=== PATIENT | male | born 1955 | race Caucasian/White ===

== ENCOUNTER 2019-10-11 10:58 | Day surgery (SDC) | payer OTHER ==
[~2019-10-11 10:58] MED LIST: Betamethasone Acetate/Betamethasone Sod Phosphate 30 MG/5 ML MDV EPIDUR ONE; Iopamidol 200-M 10 ML vial ITHECAL ONE; Lidocaine 2% 5 ML SDV INJECT ONE; Ropivacaine 0.5% 5 MG/ML 30 ML SDV INJECT ONE
--- NOTE | 2019-10-11 18:50 | OR ---
SURGEON: Claire New D.O. DATE OF PROCEDURE: 10/11/2019 PRIMARY SURGEON: Claire New D.O. ASSISTANTS: OR staff present: 1. Brendan Ny RN. 2. RT Chica. 3. Brendan Barksdale RN. PREOPERATIVE DIAGNOSES: 1. Lumbar degenerative disk disease, L2-3 through L5-S1. 2. Lumbar spinal stenosis. 3. Lumbar spondylosis. 4. Lumbar radiculopathy. POSTOPERATIVE DIAGNOSES: 1. Lumbar degenerative disk disease, L2-3 through L5-S1. 2. Lumbar spinal stenosis. 3. Lumbar spondylosis. 4. Lumbar radiculopathy. PROCEDURES PERFORMED: 1. Caudal epidural steroid injection. 2. Fluoroscopic guidance for needle placement. 3. Local with oral Valium for sedation. SCREENING QUESTIONS: The patient answered "no" to all of the following questions: 1. Are you allergic to latex? 2. Do you have a bleeding disorder? 3. Do you have any current local or systemic infections? 4. Are you taking any anti-inflammatories or blood thinners? 5. Do you have any joint replacements, heart valve replacements, or a pacemaker? DESCRIPTION OF PROCEDURE: The patient had the procedure thoroughly explained including all possible risks, benefits and alternatives. Consent was signed in my clinic indicating understanding and willingness to proceed. The patient presented to [facility] [place] and was escorted to the dressing room to disrobe and change into a hospital gown. Preoperative vital signs were taken and stable. The patient reported that Valium was taken prior to the procedure. The patient was brought back to the procedure room and placed in the prone position on the procedure room table. A pillow was placed under the hips in order to flatten the lumbar lordosis. The back was prepped with ChloraPrep and sterilely draped. All personnel in the operating room were dressed in appropriate attire including surgical scrubs, head and shoe covers. This was to ensure sterility while in the treatment room. During the time fluoroscopy was in use, all personnel in the operating room wore lead pacheco with thyroid collars. Sterile technique was used throughout the procedure. The patient was awake and conversant throughout the procedure. There was no evidence of infection at the site of needle insertion. Skeletal landmarks were identified under fluoroscopy for the lumbar epidural. Skin was anesthetized with 2% lidocaine with a sterile 27-gauge 1.5 inch needle. Then a 20-gauge Tuohy epidural needle was placed in the epidural space with loss of resistance technique under fluoroscopic guidance. No heme, cerebrospinal fluid, or paresthesias were noted. Isovue-200 contrast dye was injected in 0.2 cubic centimeter increments and seen to outline the epidural space in both AP and lateral views. There was no intravascular flow pattern observed under live fluoroscopy. Then 12 milligrams of Celestone was slowly injected after negative aspiration. The patient tolerated the procedure well. Vital signs were stable during and after the procedure. The staff escorted the patient to the recovery area and the patient was released in stable condition after a brief stay in the recovery room monitored by the nurse. The patient was given both oral and written discharge and follow up instructions with recommendation to follow up given for 2-3 weeks. The patient voiced understanding including understanding of those signs and symptoms that would require emergency care. The patient knows how to contact the office if there are any additional problems or questions in the meantime. PREOPERATIVE PAIN: 5 to 9 out of 10. POSTOPERATIVE PAIN: 1/10. FOLLOWUP: In the Pain Clinic in 1 month. KENNETH / PATRICIA /[id number]
== END 2019-10-11 13:00 | disposition home or self-care (01) ==
LOC: MW.SDS 10:58
PROVIDERS: ATTEND Anesthesiology
DX: M51.16 Intervertebral disc disorders with radiculopathy, lumbar region (principal); M51.37 Other intervertebral disc degeneration, lumbosacral region; M47.26 Other spondylosis with radiculopathy, lumbar region; M48.061 Spinal stenosis, lumbar region without neurogenic claudication
CPT/HCPCS: J0702

== ENCOUNTER 2019-12-11 10:58 | Day surgery (SDC) | payer OTHER ==
[2019-12-11] MEDS ORDERED: Ropivacaine 0.5% 5 MG/ML 30 ML SDV INJECT ONE (12:30)
[2019-12-11] MEDS ORDERED: Lidocaine 2% 5 ML SDV INJECT ONE (12:30)
[2019-12-11] MEDS ORDERED: Iopamidol 200-M 10 ML vial ITHECAL ONE (12:30)
[2019-12-11] MEDS ORDERED: Betamethasone Acetate/Betamethasone Sod Phosphate 30 MG/5 ML MDV EPIDUR ONE (12:30)
--- NOTE | 2019-12-11 20:20 | OR ---
SURGEON: Claire New D.O. DATE OF PROCEDURE: 12/11/2019 PRIMARY SURGEON: Claire New D.O. ASSISTANTS: OR staff present: 1. Hamzah Hurt. 2. Darrell Thrasher. 3. Caprice Posada. 4. Rosamaria Blas. WOUND CLASS: I. PREOPERATIVE DIAGNOSES: 1. Lumbar L2-3 degenerative disk disease. 2. L5-S1 degenerative disk disease. 3. Left L2 radiculopathy. 4. Left S1 radiculopathy. POSTOPERATIVE DIAGNOSES: 1. Lumbar L2-3 degenerative disk disease. 2. L5-S1 degenerative disk disease. 3. Left L2 radiculopathy. 4. Left S1 radiculopathy. PROCEDURE PERFORMED: 1. Left L2 transforaminal epidural steroid injection. 2. Left S1 transforaminal epidural steroid injection. 3. Fluoroscopic guidance for needle placement. 4. Local with oral Valium for sedation. SCREENING QUESTIONS: The patient answered "no" to all of the following questions: 1. Are you allergic to iodine, Betadine or latex? 2. Do you have a bleeding disorder? 3. Do you have any joint replacements, heart valve replacements, or a pacemaker? 4. Are you allergic to anti-inflammatories or blood thinners? 5. Do you have any current local or systemic infections? DESCRIPTION OF PROCEDURE: The patient had the procedure thoroughly explained including risks, benefits and alternatives. Consent was signed in my clinic indicating understanding and willingness to proceed. The patient presented to [facility] [place] where the patient was escorted to the dressing room to disrobe and change into a hospital gown. Preoperative vital signs were taken and stable. The patient reported that Valium was taken prior to the procedure. The patient was brought to the procedure room and placed in the prone position on the table. A pillow was placed under the abdomen in order to flatten the lumbar lordosis. The back was prepped with ChloraPrep and sterilely draped. All personnel in the operating room were dressed in appropriate attire including surgical scrubs, head and shoe covers. This was to ensure sterility while in the treatment room. During the time fluoroscopy was in use, all personnel in the operating room wore lead pacheco with thyroid collars. Sterile technique was used during the procedure. The fluoroscope was placed for the L2 transforaminal epidural steroid injection. There was no sign of infection at the skin site for needle insertion. The skin was anesthetized with 2% lidocaine with a 27 gauge 1-1/2 inch needle. Then a 22 gauge 3-1/2 inch spinal needle, advanced to the L2 foramen. Under direct fluoroscopic guidance needle position was verified in three views; AP, oblique and lateral, with 0.2 cubic centimeters increments of Isovue- 200 dye. No intravascular flow pattern was observed under live fluoroscopy. Then 6 milligrams of Celestone and local mixture was slowly injected after negative aspiration of heme, cerebrospinal fluid and no paresthesias were noted. The needle was cleared prior to removal from the skin. The procedure was then repeated as above with no adverse reactions. The patient was brought to the recovery room awake and in good condition by my staff. The patient was monitored and discharge instructions were given after a brief stay in the recovery area. Both oral and written discharge and follow up instructions were given. The patient will follow up in the clinic in 3 weeks post procedure to evaluate the efficacy. The patient verbalized understanding including understanding of those signs and symptoms that would require emergency care and knows how to contact the office if there are any problems or questions in the meantime. PREOPERATIVE PAIN: 3 to 7 out of 10. POSTOPERATIVE PAIN: 1/10. FOLLOWUP: Follow up in the Pain Clinic in 3 weeks. KENNETH / PATRICIA /[id number] MANE
== END 2019-12-11 13:31 ==
LOC: MW.SDS 10:58
PROVIDERS: ATTEND Anesthesiology
DX: G89.29 Other chronic pain (principal); M51.16 Intervertebral disc disorders with radiculopathy, lumbar region; M51.17 Intervertebral disc disorders with radiculopathy, lumbosacral region
CPT/HCPCS: 64483; 64484; J0702; 62323

== ENCOUNTER 2020-04-29 10:59 | Day surgery (SDC) | payer OTHER ==
[2020-04-29] MEDS ORDERED: Ropivacaine 0.5% 5 MG/ML 30 ML SDV INJECT ONE (12:30)
[2020-04-29] MEDS ORDERED: Betamethasone Acetate/Betamethasone Sod Phosphate 30 MG/5 ML MDV EPIDUR ONE (12:30)
[2020-04-29] MEDS ORDERED: Iopamidol 200-M 10 ML vial ITHECAL ONE (12:30)
[2020-04-29] MEDS ORDERED: Lidocaine 2% 5 ML SDV INJECT ONE (12:30)
--- NOTE | 2020-04-29 19:21 | OR ---
SURGEON: Claire New D.O. DATE OF PROCEDURE: 04/29/2020 PREOPERATIVE DIAGNOSES: 1. Lumbar degenerative disk disease. 2. Lumbar spondylosis. 3. Lumbar left S1 radiculopathy. POSTOPERATIVE DIAGNOSES: 1. Lumbar degenerative disk disease. 2. Lumbar spondylosis. 3. Lumbar left S1 radiculopathy. PROCEDURES PERFORMED: 1. Left S1 transforaminal epidural steroid injection. 2. Fluoroscopic guidance for needle placement. 3. Local with oral Valium for sedation. OR STAFF PRESENT: 1. Brendan Barksdale RN. 2. Darrell Hylton RN. 3. Adrián Lau RT. WOUND CLASS: I. SCREENING QUESTIONS: The patient answered "no" to all of the following questions: 1. Are you allergic to iodine, Betadine or latex? 2. Do you have a bleeding disorder? 3. Do you have any joint replacements, heart valve replacements, or a pacemaker? 4. Are you allergic to anti-inflammatories or blood thinners? 5. Do you have any current local or systemic infections? DESCRIPTION OF PROCEDURE: The patient had the procedure thoroughly explained including risks, benefits and alternatives. Consent was signed in my clinic indicating understanding and willingness to proceed. The patient presented to [facility] [place] where the patient was escorted to the dressing room to disrobe and change into a hospital gown. Preoperative vital signs were taken and stable. The patient reported that Valium was taken prior to the procedure. The patient was brought to the procedure room and placed in the prone position on the table. A pillow was placed under the abdomen in order to flatten the lumbar lordosis. The back was prepped with ChloraPrep and sterilely draped. All personnel in the operating room were dressed in appropriate attire including surgical scrubs, head and shoe covers. This was to ensure sterility while in the treatment room. During the time fluoroscopy was in use, all personnel in the operating room wore lead pacheco with thyroid collars. Sterile technique was used during the procedure. The fluoroscope was placed for the left S1 transforaminal epidural steroid injection. There was no sign of infection at the skin site for needle insertion. The skin was anesthetized with 2% lidocaine with a 27 gauge 1-1/2 inch needle. Then a 22 gauge 3-1/2 inch spinal needle, advanced to the S1. Under direct fluoroscopic guidance needle position was verified in three views; AP, oblique and lateral, with 0.2 cubic centimeters increments of Isovue-200 dye. No intravascular flow pattern was observed under live fluoroscopy. Then 12 milligrams of Celestone and local was slowly injected after negative aspiration of heme, cerebrospinal fluid and no paresthesias were noted. The needle was cleared prior to removal from the skin. No adverse reactions were noted. The patient was brought to the recovery room awake and in good condition by my staff. The patient was monitored and discharge instructions were given after a brief stay in the recovery area. Both oral and written discharge and follow up instructions were given. The patient will follow up in the clinic in 3-4 weeks post procedure to evaluate the efficacy. The patient verbalized understanding including understanding of those signs and symptoms that would require emergency care and knows how to contact the office if there are any problems or questions in the meantime. PREOPERATIVE PAIN: 6/10. POSTOPERATIVE PAIN: 2/10. FOLLOWUP: In the Pain Clinic in 3 weeks. KENNETH / PATRICIA /[id number] MTDD
== END 2020-04-29 13:28 | disposition home or self-care (01) ==
LOC: MW.SDS 10:59
PROVIDERS: ATTEND Anesthesiology
DX: M51.16 Intervertebral disc disorders with radiculopathy, lumbar region (principal); M48.061 Spinal stenosis, lumbar region without neurogenic claudication; M79.18 Myalgia, other site; M99.83 Other biomechanical lesions of lumbar region; M47.26 Other spondylosis with radiculopathy, lumbar region; Z87.891 Personal history of nicotine dependence
CPT/HCPCS: 62323; 64483

== ENCOUNTER 2020-12-09 10:59 | Day surgery (SDC) | payer OTHER ==
[2020-12-09] MEDS ORDERED: Ropivacaine 0.5% 5 MG/ML 30 ML SDV INJECT ONE (12:00)
[2020-12-09] MEDS ORDERED: Betamethasone Acetate/Betamethasone Sod Phosphate 30 MG/5 ML MDV EPIDUR ONE (12:00)
[2020-12-09] MEDS ORDERED: Iopamidol 200-M 10 ML vial ITHECAL ONE (12:00)
[2020-12-09] MEDS ORDERED: Lidocaine 2% 5 ML SDV INJECT ONE (12:00)
--- NOTE | 2020-12-09 15:37 | OR ---
SURGEON: Claire New D.O. DATE OF PROCEDURE: 12/09/2020 PRIMARY SURGEON: Claire New DO ASSISTANTS: OR staff present: 1. Darrell Hylton RN. 2. Brendan Recinos RN. 3. Brendan Falk RT. WOUND CLASS: I. PREOPERATIVE DIAGNOSES: 1. Lumbar degenerative disk disease, L4-5 and L5-S1. 2. Left L5-S1 radiculopathy. 3. Lumbar spondylosis. 4. Chronic low back pain. POSTOPERATIVE DIAGNOSES: 1. Lumbar degenerative disk disease, L4-5 and L5-S1. 2. Left L5-S1 radiculopathy. 3. Lumbar spondylosis. 4. Chronic low back pain. PROCEDURES PERFORMED: 1. Left S1 transforaminal epidural steroid injection. 2. Fluoroscopic guidance for needle placement. 3. Local with oral Valium for sedation. SCREENING QUESTIONS: The patient answered "no" to all of the following questions: 1. Are you allergic to iodine, Betadine or latex? 2. Do you have a bleeding disorder? 3. Do you have any joint replacements, heart valve replacements, or a pacemaker? 4. Are you allergic to anti-inflammatories or blood thinners? 5. Do you have any current local or systemic infections? DESCRIPTION OF PROCEDURE: The patient had the procedure thoroughly explained including risks, benefits and alternatives. Consent was signed in my clinic indicating understanding and willingness to proceed. The patient presented to [facility] [place] where the patient was escorted to the dressing room to disrobe and change into a hospital gown. Preoperative vital signs were taken and stable. The patient reported that Valium was taken prior to the procedure. The patient was brought to the procedure room and placed in the prone position on the table. A pillow was placed under the abdomen in order to flatten the lumbar lordosis. The back was prepped with ChloraPrep and sterilely draped. All personnel in the operating room were dressed in appropriate attire including surgical scrubs, head and shoe covers. This was to ensure sterility while in the treatment room. During the time fluoroscopy was in use, all personnel in the operating room wore lead pacheco with thyroid collars. Sterile technique was used during the procedure. The fluoroscope was placed for the left S1 transforaminal epidural steroid injection. There was no sign of infection at the skin site for needle insertion. The skin was anesthetized with 2% lidocaine with a 27 gauge 1-1/2 inch needle. Then, a 22 gauge 3-1/2 inch spinal needle, advanced to the left S1 foramen. Under direct fluoroscopic guidance needle position was verified in three views; AP, oblique and lateral, and with 0.2 cubic centimeters increments of Isovue- 200 dye. No intravascular flow pattern was observed under live fluoroscopy. Then 12 milligrams of Celestone and local was slowly injected after negative aspiration of heme, cerebrospinal fluid and no paresthesias were noted. The needle was cleared prior to removal from the skin. No adverse reactions were noted. The patient was brought to the recovery room awake and in good condition by my staff. The patient was monitored and discharge instructions were given after a brief stay in the recovery area. Both oral and written discharge and follow up instructions were given. The patient will follow up in the clinic in 3-4 weeks post procedure to evaluate the efficacy. The patient verbalized understanding including understanding of those signs and symptoms that would require emergency care and knows how to contact the office if there are any problems or questions in the meantime. PREOPERATIVE PAIN: 7/10. POSTOPERATIVE PAIN: /10. FOLLOWUP: In the Pain Clinic in 3 weeks. KENNETH / PATRICIA /[id number] MANE
== END 2020-12-09 13:23 ==
LOC: MW.SDS 10:59
PROVIDERS: ATTEND Anesthesiology
DX: G89.29 Other chronic pain (principal); M51.16 Intervertebral disc disorders with radiculopathy, lumbar region; M51.17 Intervertebral disc disorders with radiculopathy, lumbosacral region; M47.26 Other spondylosis with radiculopathy, lumbar region; M48.061 Spinal stenosis, lumbar region without neurogenic claudication; M79.18 Myalgia, other site; Z79.899 Other long term (current) drug therapy; Z87.891 Personal history of nicotine dependence
CPT/HCPCS: 64483; J0702; J2001; J2795; Q9966

== ENCOUNTER 2021-03-13 06:28 | Day surgery (SDC) | payer SELFPAY ==
--- NOTE | 2021-03-11 15:11 | PN ---
SUBJECTIVE: The patient was supposed to get a hernia repair surgery done today. However, an emergent case from the ER came in from Dr. Dacosta. Dr. Dacosta did ask that I bump the case because of the emergent status of the case, and she also wants my assistance on the case. I did go out and explained to the patient that we would have to delay his case by several hours. I went over there is no way to know exactly how long the emergency cases can take. I explained the patient is more welcome to wait or go home and wait and we will call him when ready for his procedure. The patient was unhappy with this because he did not want to be n.p.o. for all that time. We then discussed potentially that I can get him in on Tuesday for his case. The patient was also not very thrilled with that, but liked that better than not eating for several hours, so we will get him rescheduled Tuesday. I did go over with the patient again that because we do have an ER, we potentially have to bump cases because emergent cases do come up. The patient at the end does seem to understand. GOMEZ GOMEZ /[id number]
[~2021-03-13 06:28] MED LIST changes: +Acetaminophen 1,000 MG in Premix Bag 1 BAG IV ONE; -Betamethasone Acetate/Betamethasone Sod Phosphate 30 MG/5 ML MDV EPIDUR ONE; +Dexamethasone 4 MG/ML 5 ML MDV ONE; -Iopamidol 200-M 10 ML vial ITHECAL ONE; +Lactated Ringers 1,000 ML IV SCH; -Lidocaine 2% 5 ML SDV INJECT ONE; +Midazolam 1 MG/ML 2 ML SDV ONE; +Ondansetron 4 MG/2 ML SDV ONE; +Pregabalin 75 MG Cap PO SCH; +Propofol 200 MG/20 ML SDV ONE; +Rocuronium Bromide 50 MG/5 ML Syringe ONE; -Ropivacaine 0.5% 5 MG/ML 30 ML SDV INJECT ONE; +ceFAZolin 2 GM in Premix Bag 1 BAG IV ONE; +fentaNYL 250 MCG/5 ML SDV ONE
[2021-03-13] MEDS ORDERED: Pregabalin 75 MG Cap ONE (06:46)
[2021-03-13] MEDS ORDERED: Sugammadex Sodium 200 MG/2 ML VIAL ONE (06:56)
[2021-03-13] MEDS ORDERED: Lidocaine 2% 5 ML SDV ONE (07:01)
[2021-03-13] MEDS ORDERED: Rocuronium Bromide 50 MG/5 ML Syringe ONE (07:01)
[2021-03-13] MEDS ORDERED: Ketorolac 30 MG/ML SDV ONE (07:01)
[2021-03-13] MEDS ORDERED: Ondansetron 4 MG/2 ML SDV ONE (07:01)
[2021-03-13] MEDS ORDERED: Propofol 200 MG/20 ML SDV ONE (07:01)
[2021-03-13] MEDS ORDERED: Glycopyrrolate 0.2 MG/ML SDV ONE (07:01)
[2021-03-13] MEDS ORDERED: fentaNYL 250 MCG/5 ML SDV ONE (07:02)
[2021-03-13] MEDS ORDERED: Midazolam 1 MG/ML 2 ML SDV ONE (07:02)
[2021-03-13] MEDS ORDERED: Bupivacaine 0.5% 30 ML SDV ONE (07:12)
[2021-03-13] MEDS ORDERED: Octyl 2-Cyanoacrylate 1 Tube ONE (07:12)
--- NOTE | 2021-03-13 07:14 | PCM.PREANE ---
Preanesthetic Assessment - Anesthesia/Transfusion/Family Hx Anesthesia History: No Prior Anesthesia Family History of Anesthesia Reaction: No Transfusion History: No Prior Transfusion(s) - Review of Systems General: No Symptoms Pulmonary: No Symptoms Cardiovascular: No Symptoms Gastrointestinal: No Symptoms Neurological: No Symptoms Other: Reports: None - Physical Assessment NPO Status Date: 03/13/21 NPO Status Time: 00:01 Vital Signs: Last Vital Signs Temp 97.0 F 03/13/21 06:38 Pulse 53 L 03/13/21 06:38 Resp 16 03/13/21 06:38 BP 141/83 H 03/13/21 06:38 Pulse Ox 96 03/13/21 06:38 Height: 6 ft 2 in Weight: 243 lb ASA Class: 2 Mental Status: Alert & Oriented x3 Airway Class: Mallampati = 3 Dentition: Reports: Normal Dentition ROM/Head Extension: Full Lungs: Clear to Auscultation, Normal Respiratory Effort Cardiovascular: Regular Rate, Regular Rhythm - Allergies Allergies/Adverse Reactions: Allergies Allergy/AdvReac Type Severity Reaction Status Date / Time No Known Allergies Allergy Verified 03/13/21 06:43 - Anesthesia Plan Pre-Op Medication Ordered: None - Acknowledgements Anesthesia Type Planned: General Anesthesia Pt an Appropriate Candidate for the Planned Anesthesia: Yes Alternatives and Risks of Anesthesia Discussed w Pt/Guardian: Yes Pt/Guardian Understands and Agrees with Anesthesia Plan: Yes Additional Comments: npo after mn elevated bp no rx no cv problems tob none etoh none obesity bmi 31 par no questions PreAnesthesia Questionnaire - Past Health History Medical/Surgical History: Denies Medical/Surgical History HEENT History: Reports: Hard of Hearing, Other (See Below) Other HEENT History: uses reading glasses Cardiovascular History: Reports: None Respiratory History: Reports: None Gastrointestinal History: Reports: None Genitourinary History: Reports: None Musculoskeletal History: Reports: Arthritis, Back Pain, Chronic Other Musculoskeletal History: degenerative disc disease and spinal stenosis, 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 New for back pain Psychiatric History: Reports: None Endocrine/Metabolic History: Reports: Obesity/BMI 30+ Hematologic History: Reports: None Immunologic History: Reports: None Oncologic (Cancer) History: Reports: None Dermatologic History: Reports: None - Past Surgical History Head Surgeries/Procedures: Reports: None HEENT Surgical History: Reports: None Cardiovascular Surgical History: Reports: None Respiratory Surgical History: Reports: None GI Surgical History: Reports: None Male Surgical History: Reports: None Endocrine Surgical History: Reports: None Neurological Surgical History: Reports: None Oncologic Surgical History: Reports: None Dermatological Surgical History: Reports: None - SUBSTANCE USE Tobacco Use Status *Q: Former Tobacco User Tobacco Use Within Last Twelve Months: No Recreational Drug Use History: No - HOME MEDS Home Medications: Home Meds Baclofen 10 mg PO TID PRN MDD 3 12/07/19 [History] Cyanocobalamin/FA/Pyridoxine [Folbic Tablet] 1 tab PO BID MDD 2 12/07/19 [History] Diclofenac Sodium [Voltaren 1% Gel] 100 gm TOP QID MDD 16 GM 12/07/19 [History] Gabapentin [Neurontin] 600 mg PO TID 12/07/19 [History] - CURRENT (IN HOUSE) MEDS Current Meds: Current Medications Discontinued Medications Dexamethasone (Dexamethasone 4 Mg/Ml 5 Ml Mdv) Confirm Administered Dose 20 mg .ROUTE .STK-MED ONE Stop: 03/11/21 06:58 Fentanyl (Fentanyl 250 Mcg/5 Ml Sdv) Confirm Administered Dose 250 mcg .ROUTE .STK-MED ONE Stop: 03/11/21 06:56 Fentanyl (Fentanyl 250 Mcg/5 Ml Sdv) Confirm Administered Dose 250 mcg .ROUTE .STK-MED ONE Stop: 03/13/21 07:03 Glycopyrrolate (Glycopyrrolate 0.2 Mg/Ml Sdv) Confirm Administered Dose 0.2 mg .ROUTE .STK-MED ONE Stop: 03/13/21 07:02 Lactated Ringer's (Ringers, Lactated) 1,000 mls @ 125 mls/hr IV ASDIRECTED [facility] Last Admin: 03/13/21 06:48 Dose: 125 mls/hr Documented by: Cefazolin Sodium/Dextrose 2 gm (/ Premix) 50 mls @ 100 mls/hr IV ONETIME ONE Stop: 03/10/21 10:13 Acetaminophen 1,000 mg/ Premix 100 mls @ 400 mls/hr IV NOW ONE Stop: 03/10/21 09:58 Ketorolac Tromethamine (Ketorolac 30 Mg/Ml Sdv) Confirm Administered Dose 30 mg .ROUTE .STK-MED ONE Stop: 03/13/21 07:02 Lidocaine (Lidocaine 2% 5 Ml Sdv) Confirm Administered Dose 5 ml .ROUTE .ST-MED ONE Stop: 03/13/21 07:02 Lidocaine HCl (Lidocaine 1% 5 Ml Sdv) Confirm Administered Dose 5 ml .ROUTE .ST-MED ONE Stop: 03/11/21 06:57 Midazolam HCl (Midazolam 1 Mg/Ml 2 Ml Sdv) Confirm Administered Dose 2 mg .ROUTE .ST-MED ONE Stop: 03/11/21 06:56 Midazolam HCl (Midazolam 1 Mg/Ml 2 Ml Sdv) Confirm Administered Dose 2 mg .ROUTE .ST-MED ONE Stop: 03/13/21 07:03 Ondansetron HCl (Ondansetron 4 Mg/2 Ml Sdv) Confirm Administered Dose 4 mg .ROUTE .ST-MED ONE Stop: 03/11/21 06:58 Ondansetron HCl (Ondansetron 4 Mg/2 Ml Sdv) Confirm Administered Dose 4 mg .ROUTE .[facility] ONE Stop: 03/13/21 07:02 Pregabalin (Pregabalin 75 Mg Cap) 150 mg PO DAILY [facility] Last Admin: 03/13/21 06:48 Dose: 150 mg Documented by: Pregabalin (Pregabalin 75 Mg Cap) Confirm Administered Dose 150 mg .ROUTE .[facility] ONE Stop: 03/13/21 06:47 Last Admin: 03/13/21 07:11 Dose: 150 mg Documented by: Propofol (Propofol 200 Mg/20 Ml Sdv) Confirm Administered Dose 200 mg .ROUTE .ST-MED ONE Stop: 03/11/21 06:55 Propofol (Propofol 200 Mg/20 Ml Sdv) Confirm Administered Dose 200 mg .ROUTE .ST-MED ONE Stop: 03/13/21 07:02 Rocuronium [place] (Rocuronium [place] 50 Mg/5 Ml Syringe) Confirm Administered Dose 50 mg .ROUTE .ST-MED ONE Stop: 03/11/21 06:57 Rocuronium [place] (Rocuronium [place] 50 Mg/5 Ml Syringe) Confirm Administered Dose 50 mg .ROUTE .ST-MED ONE Stop: 03/13/21 07:02 Sugammadex Sodium (Sugammadex Sodium 200 Mg/2 Ml Vial) Confirm Administered Dose 200 mg .ROUTE .ST-MED ONE Stop: 03/13/21 06:57
[2021-03-13] MEDS ORDERED: ceFAZolin 1 GM Vial ONE (07:32)
[2021-03-13] MEDS ORDERED: Sodium Chloride 0.9% 20 ML ONE (07:32)
[2021-03-13] MEDS ORDERED: fentaNYL 100 MCG/2 ML SDV IVPUSH PRN (08:34)
[2021-03-13] MEDS ORDERED: Acetaminophen 1,000 MG in Premix Bag 1 BAG IV PRN (08:34)
[2021-03-13] MEDS ORDERED: fentaNYL 100 MCG/2 ML SDV ONE ×2 (08:47→09:20)
--- NOTE | 2021-03-13 10:18 | PCM.OPNOTE ---
- General Post-Op/Procedure Note Date of Surgery/Procedure: 03/13/21 Operative Procedure(s): Laparoscopic right inguinal hernia repair and open umbilical repair Findings: large lipoma on the right side with indirect hernia Small umbilical hernia dictation number [id number] Pre Op Diagnosis: right inguinal hernia. Umbilical hernia Post-Op Diagnosis: large lipoma on the right side with indirect hernia. Small umbilical hernia Primary Surgeon: Jose G Montilla Pathology: none EBL in mLs: 5 Complications: None Condition: Good
--- NOTE | 2021-03-13 11:27 | PCM.POSTAN ---
POST ANESTHESIA ASSESSMENT - MENTAL STATUS Mental Status: Alert (no anesthetic problems), Oriented - VITAL SIGNS Vital Signs: Last Vital Signs Temp 97.2 F 03/13/21 10:14 Pulse 51 L 03/13/21 10:39 Resp 12 03/13/21 10:39 BP 136/78 03/13/21 10:39 Pulse Ox 96 03/13/21 10:39 - RESPIRATORY Respiratory Status: Respiratory Rate WNL, Airway Patent, O2 Saturation Stable - CARDIOVASCULAR CV Status: Pulse Rate WNL, Blood Pressure Stable - GASTROINTESTINAL GI Status: No Symptoms - POST OP HYDRATION Hydration Status: Adequate & Stable
[2021-03-13 11:53] VITALS: BP 136/74; PULSE 56
--- NOTE | 2021-03-13 12:16 | PCM48HPAN ---
Post Anesthesia Note - EVALUATION WITHIN 48HRS OF ANESTHETIC Vital Signs in Normal Range: Yes Patient Participated in Evaluation: Yes Respiratory Function Stable: Yes Airway Patent: Yes Cardiovascular Function Stable: Yes Hydration Status Stable: Yes Pain Control Satisfactory: Yes Nausea and Vomiting Control Satisfactory: Yes Mental Status Recovered: Yes Vital Signs: Last Vital Signs Temp 36.4 C 03/13/21 10:45 Pulse 56 L 03/13/21 11:30 Resp 16 03/13/21 11:30 BP 136/74 03/13/21 11:30 Pulse Ox 96 03/13/21 11:30
--- NOTE | 2021-03-13 13:24 | OR ---
SURGEON: PAVITHRA JOHNSON MD DATE OF PROCEDURE: 03/13/2021 PREOPERATIVE DIAGNOSES: 1. Right inguinal hernia. 2. Umbilical hernia. POSTOPERATIVE DIAGNOSES: 1. Indirect right inguinal hernia with a large lipoma. 2. Small umbilical hernia. PROCEDURE PERFORMED: Laparoscopic right inguinal hernia repair with mesh and open primary repair of small umbilical hernia without mesh. PRIMARY SURGEON: Pavithra Johnson MD ANESTHESIA: General. ESTIMATED BLOOD LOSS: 5 mL. COMPLICATIONS: None. SPECIMENS: None. REASON FOR PROCEDURE: The patient is a pleasant 65-year-old gentleman who noticed a bulge on his right side. He was unable to reduce it. It is causing of some more discomfort. Also has a small umbilical hernia. I went over again the risks, goals, and alternatives of surgery. Risks include but not limited to bleeding, infection, mesh infection, chronic pain, recurrence, injury to underlying structures such as spermatic cord leading to testicular damage, or urinary retention. Also went over similar with umbilical hernia. We will have to see if the umbilical cord needs a mesh or no mesh. Also went over with the patient, possibility of looking at the left side. If I find a defect then I would fix it at the same time. The patient would like that done too. PROCEDURE IN DETAIL: The patient was brought back to the OR. He was prepped and draped in usual sterile fashion. SCDs were placed. Preoperative antibiotics given. Lay catheter placed, and anesthesia was provided by the Anesthesia team. Time-out was performed. A curvilinear infraumbilical incision was made down to the fascia. The umbilical hernia was then dissected out, and the fascia cleared around the hernia sac. Now, a small incision was made in the anterior rectus sheath. Underlying rectus muscle was then atraumatically dissected down to the posterior rectus sheath. A balloon dissecting system was placed to the level of the pubic symphysis and inflated under direct visualization. The balloon dissecting system was removed, and trocar was placed. Now, insufflation was began, and preperitoneal pneumo was established. Now, two more 5 mm trocars were placed in the midline under direct visualization. Now, the pubic symphysis was cleared off the rest of the way. The patient did not appear to have any direct hernia defect. Now, the lateral wall was dissected off, and then the spermatic cord was gently dissected. The patient did have a larger cord lipoma. This was reduced. The patient had slightly more scarred in smaller left indirect hernia sac. This was also reduced with cord lipoma. We got good reflection of the peritoneum. Now, attention was brought to the left side. Again, this was suctioned out. There did not appear to be a cord lipoma, indirect or direct hernia on that side, so nothing was done. Now, a large Bard 3DMax MID was placed. It had good coverage. It was tacked in to the periosteum of the Naldo's ligament once laterally. Now, the larger cord lipoma and hernia sac were placed on top of the mesh. The abdomen was deflated with direct visualization and then reinflated. Nothing appeared to be slipping off the mesh. with the cord lipoma so large, I did take it up and tacked at once up into the mesh, so we will remain on this side. Again, the peritoneum was tucked over the mesh. Mesh laid nice and flat. There was good hemostasis. Now, the preperitoneum pneumo was released. The 5 mm trocars were removed along with the umbilical trocar. Now, attention was brought back to the umbilical hernia that had already been dissected out. The hernia stalk was then dissected off the umbilical hernia. The actual hernia defect still remained small, under a centimeter in size. Because of the small size, I elected to not to use any mesh, which was closed with [id number] 0 Ethibond suture, came together nicely and in no tension. Now, the anterior fascial defect was also closed with 0 Ethibond. The umbilical stalk was then attached down to the fascia with 3-0 PDS. The infraumbilical incision was then closed with a layer of 3-0 Vicryl, Monocryl, and Dermabond. The other two 5 mL ports were closed with just 4-0 Monocryl and Dermabond. All sites were again injected with remaining local. At the end of the case, sponge and needle counts were correct. Both testicles were in the scrotum. The patient was transferred to recovery room in stable condition. GOMEZ / PATRICIA /[id number]
== END 2021-03-13 12:36 | disposition home or self-care (01) ==
LOC: MW.SDS 06:28
PROVIDERS: ATTEND Surgery
DX: K40.90 Unilateral inguinal hernia, without obstruction or gangrene, not specified as recurrent (principal); K42.9 Umbilical hernia without obstruction or gangrene; D17.6 Benign lipomatous neoplasm of spermatic cord; R03.0 Elevated blood-pressure reading, without diagnosis of hypertension; E66.9 Obesity, unspecified; Z68.31 Body mass index [BMI] 31.0-31.9, adult; Z87.891 Personal history of nicotine dependence; Z79.899 Other long term (current) drug therapy
CPT/HCPCS: 49585; 49650; A9270; J0690; J1885; J2250; J2405; J2704; J3010; J3490; J7120; 00840; J1100

== ENCOUNTER 2022-01-11 07:20 | Day surgery (SDC) | payer MEDICARE, OTHER ==
[~2022-01-11 07:20] MED LIST changes: -Acetaminophen 1,000 MG in Premix Bag 1 BAG IV ONE; +Acetaminophen 1,000 MG in Premix Bag 1 BAG IV SCH; -Dexamethasone 4 MG/ML 5 ML MDV ONE; -Midazolam 1 MG/ML 2 ML SDV ONE; -Ondansetron 4 MG/2 ML SDV ONE; -Propofol 200 MG/20 ML SDV ONE; -Rocuronium Bromide 50 MG/5 ML Syringe ONE; -ceFAZolin 2 GM in Premix Bag 1 BAG IV ONE; +ceFAZolin 2 GM in Premix Bag 1 BAG IV SCH; -fentaNYL 250 MCG/5 ML SDV ONE
[2022-01-11] MEDS ORDERED: Dexamethasone 4 MG/ML 5 ML MDV ONE (08:29)
[2022-01-11] MEDS ORDERED: Propofol 200 MG/20 ML SDV ONE (08:29)
[2022-01-11] MEDS ORDERED: Lidocaine 2% 5 ML SDV ONE (08:29)
[2022-01-11] MEDS ORDERED: Sugammadex Sodium 200 MG/2 ML VIAL ONE (08:29)
[2022-01-11] MEDS ORDERED: Ondansetron 4 MG/2 ML SDV ONE (08:29)
[2022-01-11] MEDS ORDERED: Rocuronium Bromide 50 MG/5 ML Syringe ONE (08:29)
[2022-01-11] MEDS ORDERED: fentaNYL 100 MCG/2 ML SDV ONE (08:29)
[2022-01-11] MEDS ORDERED: Midazolam 1 MG/ML 2 ML SDV ONE (08:29)
[2022-01-11] MEDS ORDERED: Ondansetron 4 MG/2 ML SDV IVPUSH PRN (08:50)
[2022-01-11] MEDS ORDERED: Albuterol 0.083% 2.5 MG/3 ML Neb Soln NEB PRN (08:50)
[2022-01-11] MEDS ORDERED: HYDROmorphone 1 MG/ML Syringe IVPUSH PRN (08:50)
[2022-01-11] MEDS ORDERED: fentaNYL 100 MCG/2 ML SDV IVPUSH PRN (08:50)
[2022-01-11] MEDS ORDERED: Metoclopramide 10 MG/2 ML SDV IVPUSH PRN (08:50)
[2022-01-11] MEDS ORDERED: Naloxone 0.4 MG/ML SDV IVPUSH PRN (08:50)
[2022-01-11] MEDS ORDERED: Morphine 4 MG/ML VIAL IVPUSH PRN (08:50)
[2022-01-11] MEDS ORDERED: Ropivacaine 0.5% 5 MG/ML 30 ML SDV ONE (09:11)
[2022-01-11] MEDS ORDERED: Bupivacaine 0.25%/EPINEPHrine 1:200,000 10 ML SDV ONE (09:12)
[2022-01-11] MEDS ORDERED: Octyl 2-Cyanoacrylate 1 Tube ONE (09:57)
[2022-01-11] MEDS ORDERED: Bupivacaine 0.5% 10 ML SDV ONE (09:57)
[2022-01-11 13:45] VITALS: PULSE 56
[2022-01-11 13:55] VITALS: BP 155/86
== END 2022-01-11 14:00 | disposition home or self-care (01) ==
LOC: MW.SDS 07:20
PROVIDERS: ATTEND Surgery
DX: K40.91 Unilateral inguinal hernia, without obstruction or gangrene, recurrent (principal); I10 Essential (primary) hypertension; D17.6 Benign lipomatous neoplasm of spermatic cord; E66.9 Obesity, unspecified; Z68.30 Body mass index [BMI] 30.0-30.9, adult; Z98.890 Other specified postprocedural states; Z79.899 Other long term (current) drug therapy; Z87.891 Personal history of nicotine dependence
CPT/HCPCS: 49520; A9270; J0131; J0690; J1100; J2250; J2704; J2795; J3490; J7120; 00830; 64486; J2405; J3010

== ENCOUNTER 2025-03-12 16:43 | Emergency (ER) | payer MEDICARE, OTHER ==
[2025-03-12] MEDS: Lidocaine 2% 5 ML SDV INFILT ONE (18:30)
[2025-03-12] MEDS: Bacitracin Oint 1 GM U/D Packet TOP ONE (19:32)
[2025-03-12 19:38] VITALS: BP 170/67; PULSE 69
== END 2025-03-12 19:38 | disposition home or self-care (01) ==
LOC: MW.ED 16:43
DX: S61.411A Laceration without foreign body of right hand, initial encounter (principal); E66.9 Obesity, unspecified; Z75.3 Unavailability and inaccessibility of health-care facilities; W26.8XXA Contact with other sharp object(s), not elsewhere classified, initial encounter; Y99.0 Civilian activity done for income or pay; Y92.89 Other specified places as the place of occurrence of the external cause
CPT/HCPCS: 12002; 99282; J2003; 12042; 99283

== ENCOUNTER 2025-03-13 15:36 | Emergency (ER) | payer MEDICARE, OTHER ==
[2025-03-13 16:20] VITALS: BP 155/97; PULSE 65
[2025-03-13] MEDS: Diphtheria,Pertussis(Acell),Tetanus Vaccine 0.5 ML Syringe IM ONE (16:22)
== END 2025-03-13 16:39 | disposition home or self-care (01) ==
LOC: MW.ED 15:36
DX: Z23 Encounter for immunization (principal)
CPT/HCPCS: 90471; 90715; 99281-25; 99282

== ENCOUNTER 2025-03-19 10:49 | Emergency (ER) | payer MEDICARE, OTHER ==
[2025-03-19 11:39] VITALS: BP 160/92; PULSE 65
[2025-03-19] MEDS ORDERED: Bacitracin Oint 28.35 GM Tube TOP STA (11:58)
[2025-03-19] MEDS: Bacitracin Oint 1 GM U/D Packet TOP ONE (12:11)
== END 2025-03-19 12:48 | disposition home or self-care (01) ==
LOC: MW.ED 10:49
DX: T81.33XA Disruption of traumatic injury wound repair, initial encounter (principal); Z79.899 Other long term (current) drug therapy
CPT/HCPCS: 99282; 99283